=== PATIENT | female | born 1980 | race Caucasian/White ===

== ENCOUNTER 2021-05-15 13:35 | Inpatient (IN) | payer OTHER ==
[~2021-05-15] VITALS: Ht 175.3 cm; Wt 70.0 kg
--- NOTE | 2021-05-15 14:28 | NUR ---
PT CAME IN CO NAUSEA AND VOMITTING. PT REPORTS HX OF GASTROPERESIS. PT GIVEN A TOTAL OF 25MG PHENEGRAN BROADCAST PRODUCER BY EMS. PT WAS TAKING HER RX ZOFRAN AT HOME AND IT WASNT HELPING. PT ALSO RECIEVED A TOTAL OF 400 ML NS AND 100MCG FENATLY BROADCAST PRODUCER
[2021-05-15] MEDS ORDERED: SODIUM CHLORIDE FLUSH 10ML SYR IVF ONE (15:00)
[2021-05-15] MEDS ORDERED: ACETAMINOPHEN 325 MG TABLET PO ONE (15:00)
[2021-05-15] MEDS: PLEASE ENTER ALLERGIES MC SCH ×2 (15:00→21:21)
[2021-05-15] MEDS ORDERED: PROCHLORPERAZINE 5 MG/ML, 2ML IVPush ONE ×2 (15:00→19:30)
[2021-05-15] MEDS ORDERED: PROCHLORPERAZINE 5 MG/ML, 2ML ONE ×2 (15:01→19:39)
[2021-05-15] MEDS ORDERED: ACETAMINOPHEN 325 MG TABLET ONE (15:01)
[2021-05-15 15:19] LABS: ALANINE AMINOTRANSFERASE 26 U/L (12-78); ALBUMIN 3.4 g/dL (3.4-5.0); ANION GAP 8 mmol/L (5-15); CALCIUM 10.5 mg/dL (8.5-10.1); CHLORIDE 104 mmol/L (98-107)
--- NOTE | 2021-05-15 15:19 | NUR ---
PATIENT CONTINUES TO HAVE EPISODES OF VOMITTING. COMPAZINE ADMINISTERED PER EMAR. WILL HOLD OFF ON PO TYLENOL HOPING THE COMPAZINE WILL KICK IN. PATIENT REQUESTING STRONGER PAIN MEDS VIA IV BUT ED MD WANTS TO HOLD OFF D/T . IVF RUNING AT THIS TIME
[2021-05-15 15:20] LABS: BASOPHILS % (AUTO) 1 % (0-1); EOSINOPHILS % (AUTO) 2 % (1-7); LYMPHOCYTES % (AUTO) 12 % (22-44); MEAN CORPUSCULAR HEMOGLOBIN 29.7 pg (27.0-34.8); MEAN CORPUSCULAR HGB CONC 32.7 g/dL (32.4-35.8); MEAN PLATELET VOLUME 8.9 fL (7.4-10.4); MONOCYTES % (AUTO) 6 % (2-9); NEUTROPHILS % (AUTO) 80 % (42-75); PLATELET COUNT 281 x10^3/uL (130-400); RED BLOOD COUNT 4.35 x10^6/uL (3.82-5.3); RED CELL DISTRIBUTION WIDTH 13.2 % (9.6-15.2)
[2021-05-15 15:22] LABS: ALKALINE PHOSPHATASE 39 U/L (45-117); BILIRUBIN,TOTAL 0.8 mg/dL (0.2-1.0); CREATININE 0.86 mg/dL (0.55-1.02); TOTAL PROTEIN 7.7 g/dL (6.4-8.2)
[2021-05-15] MEDS: D5%-0.9% NACL 1,000 ML IV SCH ×2 (15:33→19:53)
[2021-05-15 16:54] LABS: MICROSCOPIC AUTO
--- NOTE | 2021-05-15 16:58 | NUR ---
Syed brother [phone]
--- NOTE | 2021-05-15 18:46 | NUR ---
Yfn limon please call [phone]
[2021-05-15] MEDS ORDERED: ACETAMINOPHEN 325 MG TABLET PO PRN (21:30)
[2021-05-15] MEDS ORDERED: BISACODYL 10 MG SUPP PR PRN (21:30)
[2021-05-15] MEDS ORDERED: ESOM20CA PO (22:49)
[2021-05-15] MEDS ORDERED: PRED5TAB PO (22:49)
[2021-05-15] MEDS ORDERED: ASPI-963 PO (22:49)
[2021-05-15] MEDS ORDERED: TACR1CAP2 PO ×2 (22:49)
[2021-05-15] MEDS ORDERED: PREN1COM15 PO (22:49)
[2021-05-15] MEDS ORDERED: AZAT50TA9 PO (22:52)
[2021-05-15] MEDS ORDERED: PYRIDOXINE IV ONE (23:00)
[2021-05-15] MEDS ORDERED: POTASSIUM CHLORIDE IV ONE (23:00)
[2021-05-15] MEDS ORDERED: SODIUM CHLORIDE 0.9% IV ONE (23:00)
[2021-05-15 23:08] VITALS: BP 130/54
[2021-05-16] MEDS: DIPHENHYDRAMINE 50 MG/ML, 1ML IVPush PRN ×2 (00:02→06:23)
[2021-05-16 02:14] VITALS: BP 144/86
[2021-05-16] MEDS: PANTOPRAZOLE 40MG TABLET PO SCH (03:54)
[2021-05-16] MEDS ORDERED: ONDANSETRON 2MG/ML, 2ML IVPush PRN (04:00)
[2021-05-16] MEDS ORDERED: PROCHLORPERAZINE 5 MG/ML, 2ML IVPush PRN (04:30)
[2021-05-16 05:03] LABS: BASOPHILS % (AUTO) 1 % (0-1); EOSINOPHILS % (AUTO) 0 % (1-7); LYMPHOCYTES % (AUTO) 11 % (22-44); MEAN CORPUSCULAR HEMOGLOBIN 30.2 pg (27.0-34.8); MEAN CORPUSCULAR HGB CONC 33.1 g/dL (32.4-35.8); MEAN PLATELET VOLUME 9.6 fL (7.4-10.4); MONOCYTES % (AUTO) 7 % (2-9); NEUTROPHILS % (AUTO) 81 % (42-75); PLATELET COUNT 276 x10^3/uL (130-400); RED BLOOD COUNT 4.26 x10^6/uL (3.82-5.3); RED CELL DISTRIBUTION WIDTH 13.2 % (9.6-15.2)
[2021-05-16 05:18] LABS: CHLORIDE 106 mmol/L (98-107)
[2021-05-16 05:27] LABS: ALANINE AMINOTRANSFERASE 24 U/L (12-78); ALBUMIN 3.3 g/dL (3.4-5.0); ALKALINE PHOSPHATASE 40 U/L (45-117); ANION GAP 10 mmol/L (5-15); BILIRUBIN,TOTAL 0.7 mg/dL (0.2-1.0); CALCIUM 9.6 mg/dL (8.5-10.1); CREATININE 0.79 mg/dL (0.55-1.02); TOTAL PROTEIN 7.6 g/dL (6.4-8.2)
[2021-05-16] MEDS: SODIUM CHLORIDE 0.9% 1,000 ML IV SCH ×2 (06:16→15:02)
[2021-05-16 07:22] VITALS: BP 132/81
[2021-05-16] MEDS ORDERED: AZATHIOPRINE 50 MG TABLET PO SCH (09:00)
[2021-05-16] MEDS: TACROLIMUS 1 MG CAPSULE PO SCH (09:44)
[2021-05-16] MEDS: ASPIRIN 81 MG TABLET EC PO SCH (09:44)
[2021-05-16] MEDS: PRENATAL VIT/IRON/FA 1 EACH TABLET PO SCH (09:44)
[2021-05-16 14:38] VITALS: BP 157/104
[2021-05-16 14:40] VITALS: BP 159/98
[2021-05-16] MEDS ORDERED: D5%-0.9% NACL 1,000 ML IV SCH (15:00)
[2021-05-16] MEDS ORDERED: MAGNESIUM SULFATE PMX 4GM/100M 100 ML IVPB ONE (15:00)
[2021-05-16 20:07] VITALS: BP 103/63
[2021-05-16] MEDS ORDERED: TACROLIMUS 1 MG CAPSULE PO SCH (21:00)
[2021-05-16] MEDS: AZATHIOPRINE 50 MG TABLET PO SCH (21:20)
[2021-05-17 00:43] VITALS: BP 102/63
[2021-05-17] MEDS: SODIUM CHLORIDE 0.9% 1,000 ML IV SCH (03:47)
[2021-05-17] MEDS: PANTOPRAZOLE 40MG TABLET PO SCH (05:02)
[2021-05-17 07:45] VITALS: BP 128/83
[2021-05-17] MEDS: AZATHIOPRINE 50 MG TABLET PO SCH (08:56)
[2021-05-17] MEDS: PRENATAL VIT/IRON/FA 1 EACH TABLET PO SCH (08:56)
[2021-05-17] MEDS: ASPIRIN 81 MG TABLET EC PO SCH (08:57)
[2021-05-17] MEDS: TACROLIMUS 1 MG CAPSULE PO SCH (08:57)
== END 2021-05-17 10:15 | disposition home or self-care (01) | DRG 832 ==
LOC: ED 20:53 → EDIP 21:01 → 3N 21:41
PROVIDERS: ADMIT Internal Medicine; ATTEND Hospitalist
DX: O99.281 Endocrine, nutritional and metabolic diseases complicating pregnancy, first trimester (principal); Z94.0 Kidney transplant status; Z94.4 Liver transplant status; Z94.83 Pancreas transplant status; O21.1 Hyperemesis gravidarum with metabolic disturbance; O24.111 Pre-existing type 2 diabetes mellitus, in pregnancy, first trimester; O99.111 Other diseases of the blood and blood-forming organs and certain disorders involving the immune mechanism complicating pregnancy, first trimester; O16.1 Unspecified maternal hypertension, first trimester; Z88.8 Allergy status to other drugs, medicaments and biological substances; Z3A.12 12 weeks gestation of pregnancy; E87.6 Hypokalemia; E11.9 Type 2 diabetes mellitus without complications
CPT/HCPCS: 36415; 96374; 99285; J7042; 80053; 81001; 83735; 85025; G0378; J3480; J7500; J7507; J0780; J1200; J3415; J3475; J7030; J7512

== ENCOUNTER 2021-05-28 16:45 | Emergency (ER) | payer OTHER ==
[~2021-05-28] VITALS: Ht 175.3 cm; Wt 67.0 kg
[~2021-05-28 16:45] MED LIST: ASPI-963 PO; AZAT50TA9 PO; ESOM20CA PO; PRED5TAB PO; PREN1COM15 PO; TACR1CAP2 PO
--- NOTE | 2021-05-28 16:53 | NUR ---
PT BIBA FROM HOME FOR C/O ALL QUADRANT ABD PAIN WITH N/V. PT THINKS ITS HER GASTROPARESIS. PT ALSO STATES SHE IS 14 WEEKS , CONFIRMED BY ULTRASOUND. PT RECEIVED 4ZOFRAN, 100MCG FENTANYL & 500ML NS CONTRACT PROJECT MANAGER. PT CHANGED INTO GOWN, MONITORS IN PLACE. CALL LIGHT WITHIN REACH
--- NOTE | 2021-05-28 17:06 | NUR ---
ERP AT BS FOR EVAL
[2021-05-28] MEDS ORDERED: FAMOTIDINE 20 MG/2 ML ONE (17:21)
[2021-05-28] MEDS ORDERED: PROCHLORPERAZINE 5 MG/ML, 2ML ONE (17:21)
[2021-05-28] MEDS ORDERED: SODIUM CHLORIDE 0.9% 1,000ML IVBOLUS ONE (17:30)
[2021-05-28] MEDS ORDERED: PROCHLORPERAZINE 5 MG/ML, 2ML IVPush ONE (17:30)
[2021-05-28] MEDS ORDERED: SODIUM CHLORIDE FLUSH 10ML SYR IVF ONE (17:30)
[2021-05-28] MEDS ORDERED: FAMOTIDINE 20 MG/2 ML IVPush ONE (17:30)
--- NOTE | 2021-05-28 17:32 | NUR ---
PT MEDICATED PER EMAR. NADN/VSS. CALL LIGHT WITHIN REACH. BED IN LOWEST POSITION, BED RAILS UP X2
[2021-05-28] MEDS ORDERED: MORPHINE SULFATE 4 MG/ML, 1ML IVPush ONE (18:00)
[2021-05-28 18:06] LABS: BASOPHILS % (AUTO) 0 % (0-1); EOSINOPHILS % (AUTO) 1 % (1-7); LYMPHOCYTES % (AUTO) 8 % (22-44); MEAN CORPUSCULAR HEMOGLOBIN 29.7 pg (27.0-34.8); MEAN CORPUSCULAR HGB CONC 32.2 g/dL (32.4-35.8); MONOCYTES % (AUTO) 5 % (2-9); NEUTROPHILS % (AUTO) 86 % (42-75); PLATELET COUNT 233 x10^3/uL (130-400); RED BLOOD COUNT 3.97 x10^6/uL (3.82-5.3); RED CELL DISTRIBUTION WIDTH 13.4 % (9.6-15.2)
[2021-05-28 18:17] LABS: ALANINE AMINOTRANSFERASE 20 U/L (12-78); ALBUMIN 3.3 g/dL (3.4-5.0); ANION GAP 7 mmol/L (5-15); CALCIUM 9.7 mg/dL (8.5-10.1); CHLORIDE 105 mmol/L (98-107); CREATININE 0.64 mg/dL (0.55-1.02)
[2021-05-28 18:19] LABS: ALKALINE PHOSPHATASE 38 U/L (45-117); BILIRUBIN,TOTAL 0.3 mg/dL (0.2-1.0); TOTAL PROTEIN 7.3 g/dL (6.4-8.2)
--- NOTE | 2021-05-28 18:25 | NUR ---
PT RESTING ON GURNEY, NADN/VSS BESIDES PT BEING HYPERTENSIVE. PT STATES WHEN HER GASTROPARESIS HAPPENS SHE BECOMES HYPERTENSIVE. CALL LIGHT WITHIN REACH, BED IN LOWEST POSITION, BED RAILS UP X2. PT STATES NO NEEDS AT THIS TIME
--- NOTE | 2021-05-28 18:47 | NUR ---
PT TO US
--- NOTE | 2021-05-28 18:51 | NUR ---
REPORT TO PATRICIA RANKIN
--- NOTE | 2021-05-28 18:56 | NUR ---
PT STILL IN ULTRASOUND
[2021-05-28] MEDS ORDERED: LACTATED RINGERS 1,000 ML IVBOLUS ONE (19:00)
[2021-05-28] MEDS ORDERED: DIPHENHYDRAMINE 50 MG/ML, 1ML IVPush ONE (20:00)
[2021-05-28] MEDS ORDERED: ONDANSETRON 2MG/ML, 2ML IVPush ONE (20:00)
[2021-05-28] MEDS ORDERED: ONDANSETRON 2MG/ML, 2ML ONE (20:06)
[2021-05-28] MEDS ORDERED: DIPHENHYDRAMINE 50 MG/ML, 1ML ONE (20:06)
--- NOTE | 2021-05-28 21:04 | NUR ---
PT REPORTS IMPROVEMENT OF NAUSEA SYPMTOMS. AMBULATED PT TO RESTROOM AND BACK
[2021-05-28 22:29] VITALS: BP 153/99
== END 2021-05-28 22:45 | disposition home or self-care (01) ==
LOC: ED 17:00
DX: O26.892 Other specified pregnancy related conditions, second trimester (principal); R11.2 Nausea with vomiting, unspecified; R10.84 Generalized abdominal pain; I10 Essential (primary) hypertension; Z3A.14 14 weeks gestation of pregnancy
CPT/HCPCS: 36415; 76815; 80053; 83690; 85025; 96361; 96374; 96375; 99284; J0780; J1200; J2270; J2405; J7030; J7120; 99285

== ENCOUNTER 2021-05-30 06:56 | Inpatient (IN) | payer OTHER ==
[~2021-05-30] VITALS: Ht 175.3 cm; Wt 66.0 kg
--- NOTE | 2021-05-30 07:17 | NUR ---
BIB [facility] FROM HOME. PT C/O SEVERE ABD PAIN AND N/V STARTING ABOUT 0300. SEEN HERE FOR SAME 2 DAYS AGO. BAND ATTACHER [facility]: PIV 20G RAC. PHEN 12.5, FENT 100, 250ML NS. FSBG 146 14 WEEK PREG PT NOT ACTIVELY VOMITTING UPON ARRIVAL. PT CONNECTED TO MONITORING. CALL LIGHT IN REACH. AWAITING ORDERS.
[2021-05-30] MEDS ORDERED: SODIUM CHLORIDE 0.9% 1,000ML IVBOLUS ONE (07:30)
[2021-05-30] MEDS ORDERED: ONDANSETRON 2MG/ML, 2ML IVPush ONE ×2 (07:30→12:30)
[2021-05-30] MEDS ORDERED: ONDANSETRON 2MG/ML, 2ML ONE ×2 (07:50→12:35)
[2021-05-30] MEDS ORDERED: MORPHINE SULFATE 4 MG/ML, 1ML ONE ×2 (07:51→09:30)
[2021-05-30] MEDS: MORPHINE SULFATE 4 MG/ML, 1ML IVPush PRN ×2 (07:57→09:33)
--- NOTE | 2021-05-30 07:59 | NUR ---
MEDS ADMIN PER NOV. IVF RUNNING. PT CONNECTED TO ALL MONITORING. CALL LIGHT IN REACH. PT AWARE OF NEED FOR URINE SAMPLE.
[2021-05-30 08:04] LABS: ALANINE AMINOTRANSFERASE 19 U/L (12-78); ALBUMIN 3.4 g/dL (3.4-5.0); ANION GAP 9 mmol/L (5-15); CALCIUM 9.6 mg/dL (8.5-10.1); CHLORIDE 106 mmol/L (98-107); CREATININE 0.91 mg/dL (0.55-1.02)
[2021-05-30 08:07] LABS: ALKALINE PHOSPHATASE 41 U/L (45-117); BILIRUBIN,TOTAL 0.6 mg/dL (0.2-1.0); TOTAL PROTEIN 7.7 g/dL (6.4-8.2)
[2021-05-30 08:08] LABS: BASOPHILS % (AUTO) 0 % (0-1); EOSINOPHILS % (AUTO) 0 % (1-7); LYMPHOCYTES % (AUTO) 11 % (22-44); MEAN CORPUSCULAR HEMOGLOBIN 30.2 pg (27.0-34.8); MEAN CORPUSCULAR HGB CONC 33.6 g/dL (32.4-35.8); MEAN PLATELET VOLUME 9.1 fL (7.4-10.4); MONOCYTES % (AUTO) 5 % (2-9); NEUTROPHILS % (AUTO) 83 % (42-75); PLATELET COUNT 289 x10^3/uL (130-400); RED BLOOD COUNT 4.29 x10^6/uL (3.82-5.3); RED CELL DISTRIBUTION WIDTH 13.2 % (9.6-15.2)
--- NOTE | 2021-05-30 08:36 | NUR ---
PT STATES SHE IS UNABLE TO PROVIDE URINE SAMPLE AT THIS TIME.
--- NOTE | 2021-05-30 08:49 | NUR ---
US AT BEDSIDE
--- NOTE | 2021-05-30 09:12 | NUR ---
PT PROVIDED URINE SAMPLE. UA COLLECTED AND SENT TO LAB.
[2021-05-30 09:29] LABS: MICROSCOPIC AUTO
--- NOTE | 2021-05-30 09:35 | NUR ---
PT C/O 05/08 PAIN. SECOND DOSE PAIN NATURAL FABRICATOR PER NOV. PT CONNECTED TO ALL MONITORING. CALL LIGHT IN REACH.
[2021-05-30] MEDS ORDERED: NS + 40MEQ KCL 1,000 ML IV ONE (09:47)
[2021-05-30] MEDS: POTASSIUM CHLORIDE 40 MEQ in SODIUM CHLORIDE 0.9% 500 ML IV ONE ×2 (09:56→11:23)
--- NOTE | 2021-05-30 09:57 | NUR ---
POTASSIUM IV RUNNING PER NOV.
--- NOTE | 2021-05-30 10:08 | NUR ---
ALL RESULTS ARE BACK AT THIS TIME. CHART UP FOR RECHECK.
--- NOTE | 2021-05-30 10:50 | NUR ---
REPORT GIVEN TO GUEVARA GOMEZ. TRANSFER OF CARE.
--- NOTE | 2021-05-30 11:37 | NUR ---
REPORT GIVEN TO KRISTEN GOMEZ.
--- NOTE | 2021-05-30 12:40 | NUR ---
PT C/O RECURRENT NAUSEA, ZOFRAN GIVEN PER MD ORDER.
[2021-05-30 15:53] VITALS: BP 134/87
[2021-05-30] MEDS: SODIUM CHLORIDE 0.9% 1,000 ML IV SCH (18:11)
[2021-05-30 18:35] VITALS: BP 119/83
[2021-05-30] MEDS: AZATHIOPRINE 50 MG TABLET PO SCH (20:11)
[2021-05-30] MEDS: TACROLIMUS 1 MG CAPSULE PO SCH (20:11)
[2021-05-30] MEDS: ENOXAPARIN 30 MG/0.3 ML SQ SCH (20:11)
[2021-05-31] VITALS (21 sets, daily range): BP systolic 95–179; BP diastolic 60–110
[2021-05-31] MEDS: OMEPRAZOLE 20 MG CAPSULE.DR PO SCH (05:31)
[2021-05-31] MEDS: SODIUM CHLORIDE 0.9% 1,000 ML IV SCH ×2 (05:31→20:34)
[2021-05-31 07:03] LABS: BASOPHILS % (AUTO) 1 % (0-1); EOSINOPHILS % (AUTO) 2 % (1-7); LYMPHOCYTES % (AUTO) 28 % (22-44); MEAN CORPUSCULAR HEMOGLOBIN 30.6 pg (27.0-34.8); MEAN CORPUSCULAR HGB CONC 33.4 g/dL (32.4-35.8); MEAN PLATELET VOLUME 8.9 fL (7.4-10.4); MONOCYTES % (AUTO) 10 % (2-9); NEUTROPHILS % (AUTO) 60 % (42-75); PLATELET COUNT 220 x10^3/uL (130-400); RED BLOOD COUNT 3.39 x10^6/uL (3.82-5.3); RED CELL DISTRIBUTION WIDTH 13.3 % (9.6-15.2)
[2021-05-31 07:13] LABS: ANION GAP 7 mmol/L (5-15); CALCIUM 7.7 mg/dL (8.5-10.1); CHLORIDE 110 mmol/L (98-107)
[2021-05-31 07:14] LABS: CREATININE 0.76 mg/dL (0.55-1.02)
[2021-05-31] MEDS: ONDANSETRON 2MG/ML, 2ML IVPush PRN ×3 (08:02→21:57)
[2021-05-31] MEDS: morphine SULFATE 10 MG/ML, 1ML IVPush PRN ×4 (08:12→12:52)
[2021-05-31] MEDS: TACROLIMUS 1 MG CAPSULE PO SCH ×2 (09:00→20:34)
[2021-05-31] MEDS: ENOXAPARIN 30 MG/0.3 ML SQ SCH ×2 (09:00→20:35)
[2021-05-31] MEDS: AZATHIOPRINE 50 MG TABLET PO SCH (09:00)
[2021-05-31] MEDS: DIPHENHYDRAMINE 50 MG/ML, 1ML IVPush PRN ×2 (09:49→15:48)
[2021-05-31] MEDS: PROMETHAZINE 25 MG/ML, 1ML IM PRN ×2 (11:52→18:25)
[2021-05-31] MEDS ORDERED: LABETALOL 5MG/ML, 20ML IVPush PRN ×2 (12:00→16:30)
[2021-06-01 00:10] VITALS: BP 106/68
[2021-06-01] MEDS: PROMETHAZINE 25 MG/ML, 1ML IM PRN ×3 (00:12→09:34)
[2021-06-01] MEDS: ONDANSETRON 2MG/ML, 2ML IVPush PRN ×2 (04:05→11:30)
[2021-06-01] MEDS: DIPHENHYDRAMINE 50 MG/ML, 1ML IVPush PRN ×2 (04:13→13:42)
[2021-06-01] MEDS: OMEPRAZOLE 20 MG CAPSULE.DR PO SCH (05:15)
[2021-06-01] MEDS: SODIUM CHLORIDE 0.9% 1,000 ML IV SCH ×2 (05:15→16:00)
[2021-06-01] MEDS: morphine SULFATE 10 MG/ML, 1ML IVPush PRN ×3 (05:15→09:40)
[2021-06-01 07:10] VITALS: BP 169/94
[2021-06-01 07:39] LABS: BASOPHILS % (AUTO) 1 % (0-1); EOSINOPHILS % (AUTO) 1 % (1-7); LYMPHOCYTES % (AUTO) 12 % (22-44); MEAN PLATELET VOLUME 8.9 fL (7.4-10.4); MONOCYTES % (AUTO) 7 % (2-9); NEUTROPHILS % (AUTO) 81 % (42-75); PLATELET COUNT 240 x10^3/uL (130-400); RED BLOOD COUNT 4.03 x10^6/uL (3.82-5.3); RED CELL DISTRIBUTION WIDTH 13.4 % (9.6-15.2)
[2021-06-01 07:52] LABS: ALBUMIN 2.6 g/dL (3.4-5.0); ANION GAP 10 mmol/L (5-15); CALCIUM 7.4 mg/dL (8.5-10.1); CHLORIDE 108 mmol/L (98-107); CREATININE 0.71 mg/dL (0.55-1.02)
[2021-06-01] MEDS: ENOXAPARIN 30 MG/0.3 ML SQ SCH ×2 (09:00→20:45)
[2021-06-01] MEDS: POTASSIUM CHLORIDE 40 MEQ in SODIUM CHLORIDE 0.9% 500 ML IV ONE ×2 (13:42→14:00)
[2021-06-01 14:12] VITALS: BP 114/77
[2021-06-01] MEDS: AZATHIOPRINE 50 MG TABLET PO SCH (15:34)
[2021-06-01] MEDS: TACROLIMUS 1 MG CAPSULE PO SCH ×2 (15:35→20:45)
[2021-06-01] MEDS: PRENATAL VIT/IRON/FA 1 EACH TABLET PO SCH (15:35)
[2021-06-01] MEDS: ASPIRIN 81 MG TABLET CHEW PO SCH (16:53)
[2021-06-01] MEDS: D5%-0.9% NACL 1,000 ML IV SCH (17:53)
[2021-06-01 19:26] VITALS: BP 95/63
[2021-06-01] MEDS ORDERED: POTASSIUM CHLORIDE 40 MEQ in SODIUM CHLORIDE 0.9% 500 ML IV ONE (20:00)
[2021-06-01] MEDS: METOCLOPRAMIDE 10MG TABLET PO SCH (20:45)
[2021-06-02 00:04] VITALS: BP 102/66
[2021-06-02] MEDS: D5%-0.9% NACL 1,000 ML IV SCH (04:00)
[2021-06-02 05:07] LABS: BASOPHILS % (AUTO) 0 % (0-1); EOSINOPHILS % (AUTO) 1 % (1-7); LYMPHOCYTES % (AUTO) 21 % (22-44); MEAN CORPUSCULAR HEMOGLOBIN 30.8 pg (27.0-34.8); MEAN CORPUSCULAR HGB CONC 33.6 g/dL (32.4-35.8); MEAN PLATELET VOLUME 9.1 fL (7.4-10.4); MONOCYTES % (AUTO) 9 % (2-9); NEUTROPHILS % (AUTO) 68 % (42-75); PLATELET COUNT 209 x10^3/uL (130-400); RED BLOOD COUNT 3.31 x10^6/uL (3.82-5.3); RED CELL DISTRIBUTION WIDTH 13.5 % (9.6-15.2)
[2021-06-02 05:28] LABS: CHLORIDE 115 mmol/L (98-107)
[2021-06-02 05:31] LABS: ANION GAP 4 mmol/L (5-15); CALCIUM 7.3 mg/dL (8.5-10.1); CREATININE 0.73 mg/dL (0.55-1.02)
[2021-06-02] MEDS: OMEPRAZOLE 20 MG CAPSULE.DR PO SCH (05:46)
[2021-06-02 08:00] VITALS: BP 98/64
[2021-06-02] MEDS: ENOXAPARIN 30 MG/0.3 ML SQ SCH (09:00)
[2021-06-02] MEDS: ASPIRIN 81 MG TABLET CHEW PO SCH (09:58)
[2021-06-02] MEDS: AZATHIOPRINE 50 MG TABLET PO SCH (09:58)
[2021-06-02] MEDS: METOCLOPRAMIDE 10MG TABLET PO SCH (09:59)
[2021-06-02] MEDS: PRENATAL VIT/IRON/FA 1 EACH TABLET PO SCH (09:59)
[2021-06-02] MEDS: TACROLIMUS 1 MG CAPSULE PO SCH (10:08)
[2021-06-02 10:11] VITALS: BP 96/68
[2021-06-02] MEDS ORDERED: METO10TA2 PO (11:27)
== END 2021-06-02 13:31 | disposition home or self-care (01) | DRG 832 ==
LOC: ED 08:47 → 3N 10:52
PROVIDERS: ADMIT Family Medicine; ATTEND Hospitalist
DX: O16.2 Unspecified maternal hypertension, second trimester (principal); Z94.0 Kidney transplant status; Z94.83 Pancreas transplant status; O99.282 Endocrine, nutritional and metabolic diseases complicating pregnancy, second trimester; Z3A.14 14 weeks gestation of pregnancy; E87.6 Hypokalemia; Z88.8 Allergy status to other drugs, medicaments and biological substances
CPT/HCPCS: 36415; 96361; 96374; 96375; 96376; 99285; J7042; 76815; 80048; 80053; 80069; 81001; 83036; 83690; 85025; G0378; J2405; J2550; J3480; J7500; J7507; J1200; J2270; J7030; J7040; J7512; Q0181

== ENCOUNTER 2021-06-24 13:10 | Inpatient (IN) | payer OTHER ==
[~2021-06-24] VITALS: Ht 175.3 cm; Wt 74.5 kg
[~2021-06-24 13:10] MED LIST changes: +METO10TA2 PO
--- NOTE | 2021-06-24 13:20 | NUR ---
MD IS AT THE BEDSIDE FOR ASSESSMENT/CONSULT.
[2021-06-24] MEDS ORDERED: METOCLOPRAMIDE 5 MG/ML, 2ML ONE (13:28)
[2021-06-24] MEDS ORDERED: DIPHENHYDRAMINE 50 MG/ML, 1ML ONE (13:28)
[2021-06-24] MEDS ORDERED: ONDANSETRON 2MG/ML, 2ML ONE (13:28)
[2021-06-24] MEDS ORDERED: METOCLOPRAMIDE 5 MG/ML, 2ML IVPush ONE ×2 (13:30)
[2021-06-24] MEDS ORDERED: ONDANSETRON 2MG/ML, 2ML IVPush ONE ×2 (13:30)
[2021-06-24] MEDS ORDERED: DIPHENHYDRAMINE 50 MG/ML, 1ML IV ONE (13:30)
[2021-06-24] MEDS ORDERED: SODIUM CHLORIDE 0.9% 1,000ML IVBOLUS ONE ×2 (13:30)
[2021-06-24] MEDS ORDERED: DIPHENHYDRAMINE 50 MG/ML, 1ML IVPush ONE (13:30)
--- NOTE | 2021-06-24 13:43 | NUR ---
PHLEBOTOMY IS AT THE BEDSIDE FOR BLOOD SAMPLING
[2021-06-24 14:09] LABS: BASOPHILS % (AUTO) 1 % (0-1); EOSINOPHILS % (AUTO) 1 % (1-7); LYMPHOCYTES % (AUTO) 15 % (22-44); MEAN CORPUSCULAR HEMOGLOBIN 30.6 pg (27.0-34.8); MEAN CORPUSCULAR HGB CONC 33.3 g/dL (32.4-35.8); MEAN PLATELET VOLUME 9.2 fL (7.4-10.4); MONOCYTES % (AUTO) 6 % (2-9); NEUTROPHILS % (AUTO) 77 % (42-75); PLATELET COUNT 239 x10^3/uL (130-400); RED BLOOD COUNT 4.29 x10^6/uL (3.82-5.3); RED CELL DISTRIBUTION WIDTH 14.2 % (9.6-15.2)
[2021-06-24 14:11] LABS: ALANINE AMINOTRANSFERASE 22 U/L (12-78); ALBUMIN 3.4 g/dL (3.4-5.0); ANION GAP 5 mmol/L (5-15); CALCIUM 9.2 mg/dL (8.5-10.1); CHLORIDE 105 mmol/L (98-107)
[2021-06-24 14:13] LABS: ALKALINE PHOSPHATASE 47 U/L (45-117); BILIRUBIN,TOTAL 0.4 mg/dL (0.2-1.0); TOTAL PROTEIN 8.2 g/dL (6.4-8.2)
--- NOTE | 2021-06-24 15:01 | NUR ---
BREAK RN- ASSISTED AMBULATION TO BATHROOM.
[2021-06-24] MEDS ORDERED: PROMETHAZINE 25 MG/ML, 1ML ONE (15:45)
--- NOTE | 2021-06-24 15:52 | NUR ---
PT IS STILL EXPERIENCING SEVERE NAUSEA AND VOMITING. MEDICATED PER NOV. I ANTICIPATE INPATIENT CARE.
[2021-06-24] MEDS ORDERED: PROMETHAZINE 25 MG/ML, 1ML IM ONE (16:00)
--- NOTE | 2021-06-24 17:00 | NUR ---
HOSPITALIST IN ROOM
--- NOTE | 2021-06-24 17:10 | NUR ---
THROUGHPUT RN: REGISTRATION CALLED TO FULL REG PT FOR ADMISSION, NEED INSURANCE VERIFICATION.
[2021-06-24] MEDS ORDERED: NS + 20MEQ KCL 1,000 ML IV ONE (17:45)
[2021-06-24] MEDS ORDERED: methylPREDNISolone SOD SUCC 40 MG/ML ONE (17:46)
[2021-06-24] MEDS: methylPREDNISolone SOD SUCC 40 MG/ML IV SCH (17:54)
[2021-06-24] MEDS: NS + 20MEQ KCL 1,000 ML IV SCH (18:27)
--- NOTE | 2021-06-24 18:28 | NUR ---
LATE ENTRY 1726: ADMITING PROVIDER CHANGED LEVEL OF CARE, AWAITING ROOM ASSIGNMENT ON FLOOR. Addendum: 06/24/21 at 1829 by RAMONA THROUGHPUT RN:
[2021-06-24 19:45] VITALS: BP 164/99
[2021-06-24] MEDS: METOCLOPRAMIDE 5 MG/ML, 2ML IVPush SCH (19:58)
[2021-06-24] MEDS: DOXYLAMINE 25MG TABLET PO SCH (20:01)
[2021-06-24 20:10] VITALS: BP 164/99
[2021-06-24] MEDS: ONDANSETRON 2MG/ML, 2ML IVPush PRN (20:39)
[2021-06-24] MEDS: PROCHLORPERAZINE 5 MG/ML, 2ML IVPush PRN (21:51)
[2021-06-24 22:55] LABS: MICROSCOPIC AUTO
[2021-06-24] MEDS ORDERED: TACROLIMUS 1 MG CAPSULE PO SCH (23:00)
[2021-06-25] MEDS: METOCLOPRAMIDE 5 MG/ML, 2ML IVPush SCH ×3 (00:06→12:26)
[2021-06-25] MEDS: NS + 20MEQ KCL 1,000 ML IV SCH ×5 (00:06→23:43)
[2021-06-25] MEDS: methylPREDNISolone SOD SUCC 40 MG/ML IV SCH ×2 (01:15→09:43)
[2021-06-25] MEDS: ONDANSETRON 2MG/ML, 2ML IVPush PRN ×3 (01:18→23:48)
[2021-06-25] MEDS ORDERED: LABETALOL 100 MG TABLET PO ONE (05:00)
[2021-06-25 05:12] VITALS: BP 154/84
[2021-06-25] MEDS: PROCHLORPERAZINE 5 MG/ML, 2ML IVPush PRN ×2 (05:21→21:41)
[2021-06-25 07:18] LABS: CALCIUM 7.6 mg/dL (8.5-10.1); CHLORIDE 107 mmol/L (98-107)
[2021-06-25 07:24] LABS: ALANINE AMINOTRANSFERASE 17 U/L (12-78); ALBUMIN 2.6 g/dL (3.4-5.0); ALKALINE PHOSPHATASE 42 U/L (45-117); ANION GAP 9 mmol/L (5-15); BILIRUBIN,TOTAL 0.5 mg/dL (0.2-1.0); TOTAL PROTEIN 6.6 g/dL (6.4-8.2)
[2021-06-25] MEDS: PANTOPRAZOLE 20MG TABLET PO SCH (08:30)
[2021-06-25] MEDS: AZATHIOPRINE 50 MG TABLET PO SCH (08:30)
[2021-06-25] MEDS: TACROLIMUS 1 MG CAPSULE PO SCH (08:30)
[2021-06-25] MEDS: ASPIRIN 81 MG TABLET EC PO SCH (08:30)
[2021-06-25] MEDS: PRENATAL VIT/IRON/FA 1 EACH TABLET PO SCH (08:30)
[2021-06-25 08:44] VITALS: BP 119/73
[2021-06-25] MEDS ORDERED: MAGNESIUM SULFATE PMX 2GM/50ML 50 ML IV ONE (10:00)
[2021-06-25] MEDS ORDERED: CALCIUM CARBONATE 500 MG TAB.CHEW ONE (13:49)
[2021-06-25 13:53] VITALS: BP 120/68
[2021-06-25] MEDS ORDERED: PROMETHAZINE 12.5 MG SUPP PR PRN (14:00)
[2021-06-25] MEDS ORDERED: CALCIUM CARBONATE 500 MG TAB.CHEW PO PRN (14:00)
[2021-06-25] MEDS: METOCLOPRAMIDE 5 MG/ML, 2ML IVPush PRN (17:59)
[2021-06-25 18:51] VITALS: BP 147/84
[2021-06-25] MEDS ORDERED: METOCLOPRAMIDE 1 MG/1 ML ORAL SOL PO SCH (21:00)
[2021-06-25] MEDS ORDERED: TACROLIMUS 1 MG CAPSULE PO SCH (21:00)
[2021-06-25] MEDS: DOXYLAMINE 25MG TABLET PO SCH (21:42)
[2021-06-26] MEDS ORDERED: DIPHENHYDRAMINE 50 MG CAPSULE PO ONE
[2021-06-26 00:38] VITALS: BP_SYST 142; BP_SYST 147; BP_DIAS 84
[2021-06-26] MEDS: PROCHLORPERAZINE 5 MG/ML, 2ML IVPush PRN ×2 (04:19→12:26)
[2021-06-26] MEDS: NS + 20MEQ KCL 1,000 ML IV SCH (06:25)
[2021-06-26] MEDS: METOCLOPRAMIDE 5 MG/ML, 2ML IVPush PRN ×2 (06:26→14:23)
[2021-06-26 08:00] VITALS: BP 157/93
[2021-06-26] MEDS: AZATHIOPRINE 50 MG TABLET PO SCH (09:00)
[2021-06-26] MEDS: PRENATAL VIT/IRON/FA 1 EACH TABLET PO SCH (09:18)
[2021-06-26] MEDS: PANTOPRAZOLE 20MG TABLET PO SCH (09:18)
[2021-06-26] MEDS: ASPIRIN 81 MG TABLET EC PO SCH (09:18)
[2021-06-26] MEDS: ONDANSETRON 2MG/ML, 2ML IVPush PRN (09:18)
[2021-06-26] MEDS: TACROLIMUS 1 MG CAPSULE PO SCH (09:19)
[2021-06-26 14:27] VITALS: BP 127/82
[2021-06-26] MEDS ORDERED: DOXY25TA45 PO (17:50)
== END 2021-06-26 18:15 | disposition home or self-care (01) | DRG 832 ==
LOC: ED 15:08 → SUATTDRO 16:40 → INTOOBSV 17:05 → EDIP 17:05 → 4EST 19:35 → OBSVTOIN 06-25 13:41
PROVIDERS: ADMIT Internal Medicine; ATTEND Family Medicine
DX: O21.0 Mild hyperemesis gravidarum (principal); Z94.0 Kidney transplant status; Z94.83 Pancreas transplant status; O24.012 Pre-existing type 1 diabetes mellitus, in pregnancy, second trimester; O16.2 Unspecified maternal hypertension, second trimester; O26.892 Other specified pregnancy related conditions, second trimester; O99.282 Endocrine, nutritional and metabolic diseases complicating pregnancy, second trimester; E86.0 Dehydration; R01.1 Cardiac murmur, unspecified; K31.84 Gastroparesis; E10.43 Type 1 diabetes mellitus with diabetic autonomic (poly)neuropathy; Z3A.18 18 weeks gestation of pregnancy; Z79.52 Long term (current) use of systemic steroids
CPT/HCPCS: 36415; 76815; 80053; 81001; 83690; 83735; 84100; 85025; 93005; 96372; 96374; 96375; G0378; J2405; J2550; J3480; J7500; J7507; J0780; J1200; J2765; J2920; J3475; J7030; J7512